=== PATIENT | male | born 1990 | race Caucasian/White ===

== ENCOUNTER 2019-08-24 19:51 | Emergency (ER) | payer BC ==
[~2019-08-24] VITALS: Ht 180.3 cm; Wt 121.6 kg
[2019-08-24 19:54] VITALS: Ht 180.3 cm; Wt 121.6 kg
[2019-08-24 20:39] LABS: BASOPHIL % 0.4 % (0-2); PLATELET COUNT 249 x10^3mcL (130-400); RED CELL DISTRIBUTION WIDTH 12.8 % (11.5-14.5)
[2019-08-24 20:47] LABS: CALCIUM 9.1 mg/dL (8.5-10.1); CARBON DIOXIDE 30.5 mmol/L (21-32); CHLORIDE SERUM 103 mmol/L (98-107); CREATININE SERUM 0.8 mg/dL (0.7-1.3); GFR1 > 60 mL/min; GLUCOSE SERUM 117 mg/dL (74-106); POTASSIUM SERUM 4.4 mmol/L (3.5-5.1); SODIUM SERUM 140 mmol/L (136-145)
[2019-08-24 21:03] LABS: ALBUMIN 4.1 g/dL (3.4-5.0); ALKALINE PHOSPHATASE 98 U/L (46-116); ALT/SGPT 61 U/L (16-63); AST/SGOT 31 U/L (15-37); BILIRUBIN TOTAL 0.37 mg/dL (0.20-1.00); CHOLESTEROL 177 mg/dL (<200); LIPASE 79 IU/L (73-393); T4(THYROXINE) 7.9 ug/dL (4.7-13.3); TOTAL PROTEIN, SERUM 7.7 g/dL (6.4-8.2)
[2019-08-24 21:04] LABS: HDL CHOLESTEROL 30 mg/dL (40-60)
[2019-08-24 21:20] LABS: UA SPECIFIC GRAVITY 1.025 (1.005-1.035); microscopic required? YES; urine erythrocyte 2+ (NEGATIVE)
[2019-08-24 21:30] LABS: AMPHETAMINE QUAL UR NONE DETECTED (See below)
[2019-08-24 22:11] VITALS: BP 126/70
== END 2019-08-24 22:11 | disposition home or self-care (01) ==
LOC: ED 19:51
PROVIDERS: Emergency Medicine
DX: R07.89 Other chest pain (principal); E66.9 Obesity, unspecified; Z68.37 Body mass index [BMI] 37.0-37.9, adult
CPT/HCPCS: 36415; 83880; 85378; G0480; Q0092